=== PATIENT | male | born 2000 | race Caucasian/White ===

== ENCOUNTER 2019-04-05 11:19 | Emergency (ER) | payer OTHER, SELFPAY ==
[2019-04-05 11:30] VITALS: BP 143/97; PULSE 74; RESP 18; TEMP 37.1; O2SAT 98
[2019-04-05] MEDS: ACETAMINOPHEN 325 MG TABLET 975 MG PO (11:50)
[2019-04-05] MEDS: TET,DIPH,PERTUSS(ACELL),VAC/PF 0.5 ML SYRINGE IM (11:51)
[2019-04-05] MEDS: LIDOCAINE 1% W/EPI 1 ML SUBCUT (11:51)
[2019-04-05] MEDS: BACITRACIN OINT 0.9 GM PCKT 1 APPLIC TOP (11:53)
[2019-04-05 12:03] VITALS: BP 140/92; BP 143/97; PULSE 57; PULSE 74; RESP 18; RESP 20; TEMP 37.1; O2SAT 100; O2SAT 98
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
[2019-04-05 12:48] VITALS: BP 131/79; PULSE 112; RESP 17; O2SAT 100
[2019-04-05 13:30] VITALS: BP 143/75; PULSE 74; RESP 20; O2SAT 99
== END 2019-04-05 13:30 | disposition home or self-care (01) ==
PROVIDERS: Emergency Provider Nurse Practitioner Family; PCP General Practice
DX: S01.01XA Laceration without foreign body of scalp, initial encounter (principal); S09.90XA Unspecified injury of head, initial encounter; Z23 Encounter for immunization
CPT/HCPCS: 12001; 90471; 93041; 99283; 90715

== ENCOUNTER 2020-02-07 23:10 | Emergency (ER) | payer OTHER, SELFPAY ==
[2020-02-07 23:24] VITALS: BP 133/80; PULSE 83; RESP 26; O2SAT 99; BMI 18.4
[2020-02-07 23:28] VITALS: PULSE 67; O2SAT 100
[2020-02-07 23:30] VITALS: BP 129/81; PULSE 58; O2SAT 99
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
[2020-02-07] MEDS: DIPHTH,PERTUSS(ACELL),TET VAC 0.5 ML SYRINGE IM (23:47)
[2020-02-07] MEDS: BACITRACIN OINT 0.9 GM PCKT 1 APPLIC TOP (23:47)
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
[2020-02-07 23:58] VITALS: PULSE 80
[2020-02-08] VITALS: BP 143/74; PULSE 82; O2SAT 99
[2020-02-08 00:35] VITALS: PULSE 70; O2SAT 93
[2020-02-08 00:37] VITALS: BP 146/89; PULSE 62; O2SAT 99
[2020-02-08] MEDS: ONDANSETRON 4 MG ODT SL (00:53)
[2020-02-08] MEDS: HYDROCODONE/ACET 5/325 TABLET 1 TAB PO (00:53)
[2020-02-08 01:00] VITALS: PULSE 84; O2SAT 97
[2020-02-08 01:01] VITALS: BP 142/78; PULSE 66; O2SAT 98
== END 2020-02-08 01:47 | disposition home or self-care (01) ==
PROVIDERS: Emergency Provider Emergency Medicine; PCP General Practice
DX: S82.91XA Unspecified fracture of right lower leg, initial encounter for closed fracture (principal); S80.211A Abrasion, right knee, initial encounter; V49.9XXA Car occupant (driver) (passenger) injured in unspecified traffic accident, initial encounter
CPT/HCPCS: 71045; 73562; 73590; 90715; 99283

== ENCOUNTER 2020-10-23 09:56 | Emergency (ER) | payer SELFPAY ==
[2020-10-23 10:00] VITALS: BP 140/90; PULSE 76; RESP 16; TEMP 37.3; O2SAT 100; BMI 18.4
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
== END 2020-10-23 10:18 | disposition home or self-care (01) ==
PROVIDERS: Emergency Provider Emergency Medicine; PCP General Practice
DX: M65.4 Radial styloid tenosynovitis [de Quervain] (principal)
CPT/HCPCS: 99282

== ENCOUNTER 2020-11-15 21:09 | Emergency (ER) | payer SELFPAY ==
[2020-11-15 21:17] VITALS: BP 170/96; PULSE 95; RESP 17; TEMP 37.7; O2SAT 98; BMI 16.9
--- NOTE | 2020-11-15 22:18 | ED.NAVMDI ---
HPI - Nausea/Vomiting/Diarrhea General Chief complaint: Nausea/Vomiting/Diarrhea Stated complaint: NAUSEA UNABLE TO DO MUCH Time Seen by Provider: 11/15/20 22:18 Source: patient Mode of arrival: Ambulatory Limitations: no limitations History of Present Illness HPI Narrative: 20-year-old gentleman who presents with a headache that is been present now for 1-2 hours increasing in severity. He has been having headaches fairly frequently now for the last 3 months. The frequently start with a sensation that the headache is coming associated with nausea and then acute pain. He finds that he typically needs to go to bed and sleep for 8-10 hours for the headache to resolve. In asking him questions about patterns of the course of his lifetime he 1st began having headaches when he was 11 or 12 years old. He goes through waxing and waning. Similar to the current situation that he is in. He has never been formally diagnosed with migraine headache a but this certainly sounds suspiciously like migraine headache. He has no associated neurologic complaints. Related Data Previous Rx's Medication Instructions Recorded hydrocodone-acetaminophen [[place]] 1 tab PO Q4-6H PRN #14 tab 02/08/20 ondansetron 4 mg PO Q8H PRN #14 tab 02/08/20 sumatriptan succinate 50 mg PO Q2-4H PRN #9 tab 11/16/20 Allergies Allergy/AdvReac Type Severity Reaction Status Date / Time No Known Drug Allergies Allergy Verified 10/23/20 10:10 Review of Systems Review of Systems Narrative: Pertinent positive and negative findings as per HPI Remainder of review of systems is otherwise unremarkable for Constitutional: Fevers, chills, weakness ENT: No sore throat, neck pain, ear pain CV: Chest pain, palpitations, Respiratory: Cough, wheeze, dyspnea GI: Nausea, vomiting, diarrhea, : Dysuria, hematuria, Patient History Medical History Healthy adult Migraine headache Social History Smoking Status: Current every day smoker Smoking Status: Current every day smoker alcohol intake frequency: a few times a month Substance Use Type: does not use Exam Narrative Exam Narrative: General: Alert appropriate in no acute distress Respiratory: Able to speak in full sentences, no obvious respiratory distress Skin: No obvious rashes, warm and dry Neurologic: Grossly intact no obvious asymmetries or abnormalities, pupils are equal and reactive Psych: appropriate insight and affect, cooperative Initial Vital Signs Initial Vital Signs: Vital Signs Temperature 99.8 F H 11/15/20 21:17 Pulse Rate 95 H 11/15/20 21:17 Respiratory Rate 17 11/15/20 21:17 Blood Pressure 170/96 H 11/15/20 21:17 Pulse Oximetry 98 11/15/20 21:17 Course Orders Ordered: ED Orders 11/15/20 22:37 Complete Blood Count AUTO DIFF Stat Comprehensive Metabolic Panel Stat Discontinued Medications Sodium Chloride (Normal Saline 0.9%) 1,000 mls @ 1,000 mls/hr IV BOLUS ONE Stop: 11/15/20 23:18 Last Infusion: 11/16/20 00:10 Dose: 0 mls/hr Documented by: Admin: 11/15/20 22:38 Dose: 1,000 mls/hr Documented by: RICARDO Ketorolac Tromethamine (Ketorolac 60 Mg/2 Ml Vial) 15 mg IV NOW ONE Stop: 11/15/20 22:39 Last Admin: 11/15/20 22:40 Dose: 15 mg Documented by: RICARDO Ondansetron HCl (Ondansetron 4 Mg/2 Ml Inj) 4 mg IV NOW ONE Stop: 11/15/20 22:20 Last Admin: 11/15/20 22:38 Dose: 4 mg Documented by: RICARDO Vital Signs Vital signs: Vital Signs - 8 hr 11/15/20 21:17 11/16/20 00:09 11/16/20 01:06 Temperature 99.8 F H Pulse Rate 95 H 57 L 59 L Respiratory Rate 17 14 16 Blood Pressure 170/96 H 106/65 119/85 Pulse Oximetry 98 99 98 MDM - Nausea/Vomiting/Diarrhea Medical Records Attestation: I reviewed the patient's medical records. Lab Data Result diagrams: 11/15/20 22:37 11/15/20 22:37 Labs: Lab Results 11/15/20 11/15/20 Range/Units 22:37 22:37 WBC 6.3 (4.5-11.0) X10^3/uL RBC 5.02 (4.5-5.9) X10^6/uL Hgb 14.7 (13.5-17.5) g/dL Hct 43.1 (41-53) % MCV 85.7 (80-100) fL MCH 29.3 (26-34) PG MCHC 34.2 (30-36) % RDW 12.9 (11.6-14.8) % Plt Count 280 (150-400) X10^3/uL Neut % (Auto) 54.9 (50-75) % Lymph % (Auto) 32.4 (25-40) % Isabella % (Auto) 8.7 (3-14) % Eos % (Auto) 3.3 (2-4) % Baso % (Auto) 0.7 (0-2) % Neut # (Auto) 3400 (5705-4082) /uL Lymph # (Auto) 2000 (3460-1552) /uL Isabella # (Auto) 500 (0-900) /uL Eos # (Auto) 200 (0-450) /uL Baso # (Auto) 0 (0-100) /uL Sodium 142 (137-145) mmol/L Potassium 3.5 (3.4-5.1) mmol/L Chloride 105 (98-107) mmol/L Carbon Dioxide 27 (22-32) mmol/L BUN 15 (9-20) mg/dL Creatinine 0.84 (0.66-1.25) mg/dL Estimated GFR > 60.0 (>60) mL/min BUN/Creatinine Ratio 17.9 (6-22) Glucose 112 H (70-100) mg/dL Calcium 9.2 (8.4-10.2) mg/dL Total Bilirubin 1.4 H (0.2-1.3) mg/dL AST 22 (17-59) IU/L ALT 16 (<50) IU/L Alkaline Phosphatase 101 (38-126) U/L Total Protein 7.4 (6.3-8.2) g/dL Albumin 4.5 (3.5-5.0) g/dL Globulin 2.9 (1.7-4.1) g/dL Albumin/Globulin Ratio 1.6 (1.0-2.8) MDM Narrative Medical decision making narrative: 20-year-old gentleman with headache currently in frequent headache cycle. Over the course of his lifetime this cycles of waxed and wane. He does pay attention to sleep, caffeine foods and stress and recognizes that all of these can make his headaches worse. He has never tried migraine specific medications. He responded nicely to Zofran, Toradol and fluids in the emergency department with today's headache. Risks and benefits of using sumatriptan along with side effects reviewed with him. He is interested in a trial. Prescription for sumatriptan to use with his next migraine headache is given and encouraged him to follow-up with a primary care provider. He is safe for home discharge Discharge Plan Departure Patient Disposition: Home Clinical Impression: Migraine Qualifiers: Migraine type: unspecified Status migrainosus presence: without status migrainosus Intractability: not intractable Qualified Code(s): G43.909 - Migraine, unspecified, not intractable, without status migrainosus Instructions: DI for Migraine Activity Restrictions/Additional Instructions: Thank you for coming in I think that you are having fairly classic migraine headaches. You responded nicely to typical migraine treatment in the emergency room today. Your blood work was very reassuring I am going to suggest that you try Imitrex with your next headache. This is a migraine specific medication and that works it can be wonderful in per venting headaches getting to the level is severity you currently are experiencing. I would also encourage you to follow-up with a primary care physician to discuss your headaches. If the one you have seen before is not available, Dr. Eloise Mercado our primary care physician who is on-call this evening and you might consider scheduling appointment with her Prescriptions: New sumatriptan succinate 50 mg tablet 50 mg PO Q2-4H PRN (Reason: migraine headache) Qty: 9 RF: 0 No Action hydrocodone-acetaminophen [[place]] 5-325 mg tablet 1 tab PO Q4-6H PRN (Reason: pain) Qty: 14 RF: 0 ondansetron 4 mg tablet,disintegrating 4 mg PO Q8H PRN (Reason: nausea and vomiting) Qty: 14 RF: 0 Referrals: Ken Hutton MD [Primary Care Provider] - Callie Mercado MD [Physician] - Stand Alone Forms: Work Release Note
[2020-11-15] MEDS: ONDANSETRON 4 MG/2 ML INJ IV (22:38)
[2020-11-15] MEDS: SODIUM CHLORIDE 0.9% 1,000 ML 1000 ML IV (22:38)
[2020-11-15] MEDS: KETOROLAC 60 MG/2 ML VIAL 15 MG IV (22:40)
[2020-11-15 22:52] LABS: Add Manual Diff / Slide Review NO; Basophils Absolute Auto 0 /uL (0-100); Basophils Percent Auto 0.7 % (0-2); Eosinophils Absolute Auto 200 /uL (0-450); Eosinophils Percent Auto 3.3 % (2-4); Hematocrit 43.1 % (41-53); Hemoglobin 14.7 g/dL (13.5-17.5); Lymphocytes Absolute Auto 2000 /uL (1100-4500); Lymphocytes Percent Auto 32.4 % (25-40); Mean Corpuscular HGB Conc 34.2 % (30-36); Mean Corpuscular Hemoglobin 29.3 PG (26-34); Mean Corpuscular Volume 85.7 fL (80-100); Monocytes Absolute Auto 500 /uL (0-900); Monocytes Percent Auto 8.7 % (3-14); Neutrophils Absolute Auto 3400 /uL (1500-7000); Neutrophils Percent Auto 54.9 % (50-75); Platelet Count 280 X10^3/uL (150-400); Red Blood Cell Count 5.02 X10^6/uL (4.5-5.9); Red Cell Distribution Width 12.9 % (11.6-14.8); White Blood Cell Count 6.3 X10^3/uL (4.5-11.0)
[2020-11-15 22:55] LABS: Alanine Aminotransferase 16 IU/L (<50); Albumin 4.5 g/dL (3.5-5.0); Albumin Globulin Ratio 1.6 (1.0-2.8); Alkaline Phosphatase 101 U/L (38-126); Aspartate Aminotransferase 22 IU/L (17-59); BUN Creatinine Ratio 17.9 (6-22); Bilirubin Total 1.4 mg/dL (0.2-1.3); Blood Urea Nitrogen 15 mg/dL (9-20); Calcium 9.2 mg/dL (8.4-10.2); Carbon Dioxide 27 mmol/L (22-32); Chloride 105 mmol/L (98-107); Estimated Glomerular Filt Rate > 60.0 mL/min (>60); Globulin 2.9 g/dL (1.7-4.1); Glucose 112 mg/dL (70-100); HEMOLYSIS < 15 (0-50); Potassium 3.5 mmol/L (3.4-5.1); Sodium 142 mmol/L (137-145); Total Protein 7.4 g/dL (6.3-8.2)
[2020-11-16 00:09] VITALS: BP 106/65; PULSE 57; RESP 14; O2SAT 99
[2020-11-16 01:06] VITALS: BP 119/85; PULSE 59; RESP 16; O2SAT 98
== END 2020-11-16 01:07 | disposition home or self-care (01) ==
PROVIDERS: Emergency Provider Emergency Medicine; PCP General Practice
DX: G43.909 Migraine, unspecified, not intractable, without status migrainosus (principal)
CPT/HCPCS: 36415; 80053; 85025; 96361; 96374; 96375; 99284; J1885; J2405

== ENCOUNTER 2021-04-14 19:29 | Emergency (ER) | payer OTHER, SELFPAY ==
[2021-04-14 19:49] VITALS: BP 127/85; PULSE 60; RESP 14; TEMP 36.8; O2SAT 99; BMI 16.9
[2021-04-14 22:10] VITALS: BP 114/73; PULSE 52; O2SAT 100
--- NOTE | 2021-04-14 22:50 | PC.NURSE ---
Pt reports migraines, last one on 04/06/21, often has nausea with episodes. States he was taking a prescribed medication which prevented the migraines and nausea but is not currently on it. Denies any current symptoms.
--- NOTE | 2021-04-15 00:27 | ED.HA ---
HPI - Headache General Chief Complaint: Headache Stated Complaint: LT HAND PINKIE FINGER INJU STOMACH PAIN HEAD PAIN Time Seen by Provider: 04/15/21 00:27 Mode of arrival: Ambulatory Limitations: no limitations History of Present Illness HPI Narrative: 20-year-old gentleman who presents 7 days after injuring his left small finger while at work. It slid down the edge of bladder has a small laceration. He did not seek help immediately but has been using antibiotic ointment and Band-Aids appropriately. The wound does not appear to be infected. He also has complaints of chronic migraines. These have been worsening as he is now working full-time nights. He is having up to 3 headaches a week lasting anywhere from 2-9 hours. He is having significant nausea that is causing dramatic weight loss he has gone from 120 lb down to 110 lb. He is having to call out of work because of the headaches and would prefer to never have to leave work and to gain weight. He is wondering what options there might be. He has tried ibuprofen and Tylenol but the main issue is the weight loss because of the chronic nausea secondary to the headaches. Related Data Previous Rx's Medication Instructions Recorded hydrocodone 5 mg-acetaminophen 325 1 tab PO Q4-6H PRN #14 tab 02/08/20 mg tablet (Calcium) ondansetron 4 mg disintegrating 4 mg PO Q8H PRN #14 tab 02/08/20 tablet sumatriptan succinate 50 mg tablet 50 mg PO Q2-4H PRN #9 tab 11/16/20 ondansetron 4 mg disintegrating 4 mg PO Q8H PRN #20 tab 04/15/21 tablet sumatriptan succinate 50 mg tablet 50 mg PO Q2-4H PRN #9 tab 04/15/21 Allergies Allergy/AdvReac Type Severity Reaction Status Date / Time No Known Drug Allergies Allergy Verified 04/14/21 19:49 Review of Systems Review of Systems Narrative: Pertinent positive and negative findings as per HPI Remainder of review of systems is otherwise unremarkable for Constitutional: Fevers, chills, weakness ENT: No sore throat, neck pain, ear pain CV: Chest pain, palpitations, Respiratory: Cough, wheeze, dyspnea GI: Nausea, vomiting, diarrhea, : Dysuria, hematuria, Patient History Medical History Healthy adult Migraine headache Social History Smoking Status: Current every day smoker Smoking Status: Current every day smoker alcohol intake frequency: holidays/special occasions only Substance Use Type: does not use Exam Narrative Exam Narrative: General: Alert appropriate in no acute distress Respiratory: Able to speak in full sentences, no obvious respiratory distress Skin: No obvious rashes, warm and dry Neurologic: Grossly intact no obvious asymmetries or abnormalities Psych: appropriate insight and affect, cooperative Extremity: Left hand small finger 1 cm wound over the D IP crease. The wound appears to be healing nicely. Has some minor sensory loss just distal to that but the flexor tendon appears to be completely intact. Initial Vital Signs Initial Vital Signs: Vital Signs Temperature 98.3 F 04/14/21 19:49 Pulse Rate 60 04/14/21 19:49 Respiratory Rate 14 04/14/21 19:49 Blood Pressure 127/85 04/14/21 19:49 Pulse Oximetry 99 04/14/21 19:49 Course Vital Signs Vital signs: Vital Signs - 8 hr 04/14/21 19:49 04/14/21 22:10 Temperature 98.3 F Pulse Rate 60 52 L Respiratory Rate 14 Blood Pressure 127/85 114/73 Pulse Oximetry 99 100 MDM - Headache MDM Narrative Medical decision making narrative: Finger laceration is an L and I injury, L and I paperwork is filled out. It is healing well and at a week does not need any suturing. We did discuss the a sensory loss. It may be permanent but I suspect he will gain much of that sensation back. Long discussion regarding migraines, needs chronic headaches, overuse of [id number] medications(not a concern currently), use of tripped hands and use of nausea medications. See discharge instructions below. Strongly recommended that he talk to primary care physician I think he may benefit from daily prophylactic medication in addition to medications below. He is safe for home discharge Discharge Plan Departure Patient Disposition: Home Clinical Impression: Laceration Migraine headache with aura Qualifiers: Status migrainosus presence: without status migrainosus Intractability: not intractable Qualified Code(s): G43.109 - Migraine with aura, not intractable, without status migrainosus Instructions: DI for Migraine, DI for Minor Laceration Activity Restrictions/Additional Instructions: Thank you for coming in today For the laceration to your finger, continue to use antibiotic ointment and a Band-Aid until the wound heals. You did not injure the tendons but it does look like you may have injured the nerve. I suspect that over time you will have increased sensation over the tip of your finger. For your migraines: Please start keeping a migraine calendar to note how frequent they are, which shift you are working, what foods you are eating or any other triggers that might be making the migraines worse For mild migraines during your morning time, try to Excedrin and if your nauseated you can combine that with Zofran If it is evening time using 400 mg of ibuprofen (2 [id number] pills) and 1 Tylenol every 6 hours can be very helpful in controlling pain. You can also use Zofran with this For the more severe/debilitating migraines, try 50 mg of sumatriptan which is a migraine specific medication. This too can be combined with Zofran. With the frequency of headaches that your having, you may do better with a daily medicine to prevent migraines in the 1st place. Please schedule an appointment with your primary care physician to discuss your headaches. I wish you the best Prescriptions: New ondansetron 4 mg tablet,disintegrating 4 mg PO Q8H PRN (Reason: migraine headache) Qty: 20 RF: 1 sumatriptan succinate 50 mg tablet 50 mg PO Q2-4H PRN (Reason: migraine headache) Qty: 9 RF: 1 No Action hydrocodone-acetaminophen [[place]] 5-325 mg tablet 1 tab PO Q4-6H PRN (Reason: pain) Qty: 14 RF: 0 ondansetron 4 mg tablet,disintegrating 4 mg PO Q8H PRN (Reason: nausea and vomiting) Qty: 14 RF: 0 sumatriptan succinate 50 mg tablet 50 mg PO Q2-4H PRN (Reason: migraine headache) Qty: 9 RF: 0 Referrals: Ken Hutton MD [Primary Care Provider] -
[2021-04-15 00:59] VITALS: BP 116/68; PULSE 62; RESP 17; O2SAT 99
== END 2021-04-15 01:00 | disposition home or self-care (01) ==
PROVIDERS: Emergency Provider Emergency Medicine; PCP General Practice
DX: S61.217A Laceration without foreign body of left little finger without damage to nail, initial encounter (principal); G43.109 Migraine with aura, not intractable, without status migrainosus; W26.9XXA Contact with unspecified sharp object(s), initial encounter; Y99.0 Civilian activity done for income or pay
CPT/HCPCS: 99281

== ENCOUNTER 2021-10-13 12:57 | Emergency (ER) | payer SELFPAY ==
[2021-10-13 13:41] VITALS: BP 138/94; PULSE 58; RESP 16; TEMP 36.6; O2SAT 99; BMI 18.7
--- NOTE | 2021-10-13 15:40 | PC.NURSE ---
Pt states that his L upper wisdom tooth is growing in sideways and has become painful. Has recently set up insurance to see a dentist in the near future. No swelling noted to outside of mouth.
--- NOTE | 2021-10-13 15:48 | ED_ITS ---
HPI - Dental/Oral <SILVANO Boswell - Last Filed: 10/13/21 20:46> General Chief complaint: Dental/Oral Stated complaint: Thinks tooth is infected Time Seen by Provider: 10/13/21 15:39 Source: patient Mode of arrival: Ambulatory History of Present Illness HPI Narrative: 21-year-old male presents to the emergency department complaining of left upper wisdom tooth pain for the last 1-2 years. Patient has a history of ADHD, migraines, and chronic dental pain from this wisdom tooth that is growing in laterally on his upper left. Patient states that he grinds and clenches his teeth at night time, he wakes up with pain on this tooth in the mornings. He is concerned that it is infected because it hurts every day. He denies any fever, chewing pain, oral swelling, any enlarged lymph nodes, feeling unwell, or any other concerns right now. He states that he just got insurance, and will be getting a dentist soon. Related Data Previous Rx's Medication Instructions Recorded hydrocodone 5 mg-acetaminophen 325 1 tab PO Q4-6H PRN #14 tab 02/08/20 mg tablet ([place]) ondansetron 4 mg disintegrating 4 mg PO Q8H PRN #14 tab 02/08/20 tablet sumatriptan succinate 50 mg tablet 50 mg PO Q2-4H PRN #9 tab 11/16/20 ondansetron 4 mg disintegrating 4 mg PO Q8H PRN #20 tab 04/15/21 tablet sumatriptan succinate 50 mg tablet 50 mg PO Q2-4H PRN #9 tab 04/15/21 amoxicillin 875 mg-potassium 1 tab PO BID 5 Days #10 tab 10/13/21 clavulanate 125 mg tablet tramadol 50 mg tablet 50 mg PO BID PRN #10 tab 10/13/21 Allergies Allergy/AdvReac Type Severity Reaction Status Date / Time No Known Drug Allergies Allergy Verified 10/13/21 13:46 Review of Systems <SILVANO Boswell - Last Filed: 10/13/21 20:46> Review of Systems Narrative: General: denies fever, chills, malaise, sweats, fatigue Head/Neck: denies headache, neck pain, dizziness, endorses left upper dental pain on his wisdom tooth Eyes: denies visual changes, eye pain Cardio: denies chest pain Respiratory: denies dyspnea, cough MSK: denies joint pain, muscle weakness Skin: denies rash, itching, skin lesions or other Neuro: denies numbness, tingling Patient History <SILVANO Boswell - Last Filed: 10/13/21 20:46> Medical History Healthy adult Migraine headache Social History Smoking Status: Former smoker Smoking Status: Former smoker alcohol intake frequency: holidays/special occasions only Substance Use Type: does not use Exam <SILVANO Boswell - Last Filed: 10/13/21 20:46> Narrative Exam Narrative: Independently reviewed vitals signs and nursing notes. General: cooperative, comfortable, in no acute distress, well developed and well groomed Head: atraumatic, symmetrical facial expressions Neck: supple, atraumatic, without lymphadenopathy. Eyes: pupils equal round and reactive, EOMI Nose: nares patent, no rhinorrhea Mouth/Throat: uvula midline, moist mucus membranes, left upper wisdom tooth is growing in laterally, no surrounding erythema, fluctuance, visible abscess, or dental fracture Cardiovascular: regular rate and rhythm, no peripheral edema, warm extremities Respiratory: normal effort, able to speak in complete sentences, no audible wheezing, stridor, or rales. No retractions or tachypnea. Skin: brisk capillary refill, no rash, no erythema Neuro: normal speech and cognition, A&O x3, normal tone Psych: mental status is grossly normal, congruent mood, normal affect, pleasant and cooperative Initial Vital Signs Initial Vital Signs: Vital Signs Temperature 97.9 F 10/13/21 13:41 Pulse Rate 58 L 10/13/21 13:41 Respiratory Rate 16 10/13/21 13:41 Blood Pressure 138/94 H 10/13/21 13:41 Pulse Oximetry 99 10/13/21 13:41 <Griselda Owens DO - Last Filed: 10/14/21 07:54> Initial Vital Signs Initial Vital Signs: Vital Signs Temperature 97.9 F 10/13/21 13:41 Pulse Rate 58 L 10/13/21 13:41 Respiratory Rate 16 10/13/21 13:41 Blood Pressure 138/94 H 10/13/21 13:41 Pulse Oximetry 99 10/13/21 13:41 Course <SILVANO Boswell - Last Filed: 10/13/21 20:46> Vital Signs Vital signs: Vital Signs - 8 hr 10/13/21 13:41 Temperature 97.9 F Pulse Rate 58 L Respiratory Rate 16 Blood Pressure 138/94 H Pulse Oximetry 99 <Griselda Owens DO - Last Filed: 10/14/21 07:54> Vital Signs Vital signs: Vital Signs - 8 hr 10/13/21 13:41 Temperature 97.9 F Pulse Rate 58 L Respiratory Rate 16 Blood Pressure 138/94 H Pulse Oximetry 99 MDM - Dental/Oral <SILVANO Boswell - Last Filed: 10/13/21 20:46> MDM Narrative Medical decision making narrative: This is a pleasant 21-year-old male who presents to the emergency department for left upper wisdom tooth pain for the last 1-2 years and teeth grinding/clenching history. He was concerned about infection due to the pain that occurs every day in the morning. Discussed teeth clenching and grinding and after talking about his history, patient thought this is more likely to be pain from clenching and grinding. On exam, there is no localized erythema, fluctuance, or visible abscess, patient does not have any wound or drainage coming out of his mouth. He has been afebrile, without any cervical adenopathy. Patient was referred to [facility], he recently obtained insurance and is planning on calling to make an appointment after his emergency department visit. Encouraged him to have a dental extraction of this tooth, and to obtain a night baker for teeth clenching to help with his pain. Was given a prescription of Augmentin for prophylaxis or if this becomes infected, we discussed signs and symptoms of a dental abscess or infection, and he understands the differences between dental pain and dental infection now. Patient was given a prescription for tramadol for his pain has needed. Patient is appropriate and amenable to discharge home. Vital signs are stable on repeat examination is unremarkable. Patient has been informed of results. Patient has been given strict return to ER precautions for any new or worsening symptoms. Patient understands to follow up closely with outpatient providers as instructed. Patient understands plan and agrees to discharge home. All questions and concerns answered at this time. Discharge Plan Departure Patient Disposition: Home Clinical Impression: Chronic dental pain Instructions: DI for Dental Pain Activity Restrictions/Additional Instructions: *You have been diagnosed with dental pain most likely related to grinding your teeth and clenching at nighttime. Please call the [facility] and get herself an appointment for evaluation to have your teeth pulled. There does not appear to be an infection currently. If your pain worsens surrounding this area, or if you develop fever, started feeling poorly, or the dental office requests that you take antibiotics prior to going, I have called in a [facility] ription for you. Please follow-up at the [facility], I have attached the phone numbers for the [facility] as well as the [facility]. Thank you for trusting us with your care, I hope you feel better soon. There is pain medication as well as an antibiotic at the pharmacy in [facility]. *What to do: *Please continue to take your regular medications as directed. [ x] New medication prescriptions sent to your pharmacy: [ ] [ ] New medication written as a paper prescription [ ] No new medications given *Please follow up with your primary care provider in 2-3 days, call for an appointment. Let them know you were seen in the Emergency Department and that we asked that you be seen for follow-up. We will electronically transmit a record of today's note if your PCP is in our system *If you do not have a primary care provider please contact [phone] to establish care with one of the [facility] primary care providers. *Return to Emergency Department if you should have any new, worsening or concerning symptoms, such as [fever greater than 101F, chills, worsening pain, persistent vomiting or other bothersome symptoms] Prescriptions: New amoxicillin-pot clavulanate 875-125 mg tablet 1 tab PO BID 5 Days Qty: 10 0RF tramadol 50 mg tablet 50 mg PO BID PRN (Reason: pain) Qty: 10 0RF No Action hydrocodone-acetaminophen [[place]] 5-325 mg tablet 1 tab PO Q4-6H PRN (Reason: pain) Qty: 14 0RF ondansetron 4 mg tablet,disintegrating 4 mg PO Q8H PRN (Reason: nausea and vomiting) Qty: 14 0RF sumatriptan succinate 50 mg tablet 50 mg PO Q2-4H PRN (Reason: migraine headache) Qty: 9 0RF Rx Instructions: do not exceed 4 doses per 24 hrs ondansetron 4 mg tablet,disintegrating 4 mg PO Q8H PRN (Reason: migraine headache) Qty: 20 1RF sumatriptan succinate 50 mg tablet 50 mg PO Q2-4H PRN (Reason: migraine headache) Qty: 9 1RF Rx Instructions: do not exceed 4 doses per 24 hrs Referrals: González, Alicia [Other] Ken Hutton MD [Primary Care Provider] - Stand Alone Forms: Work Release Note <Griselda Owens DO - Last Filed: 10/14/21 07:54> Cosign ED Attending Jazature Attestation: I was immediately available in the department for consultation. Documentation has been reviewed. I agree with assessment and plan.
== END 2021-10-13 16:14 | disposition home or self-care (01) ==
PROVIDERS: Emergency Provider Nurse Practitioner Critical Care Medicine; PCP General Practice
DX: K08.89 Other specified disorders of teeth and supporting structures (principal); G89.29 Other chronic pain
CPT/HCPCS: 99281

== ENCOUNTER 2022-06-28 11:43 | Emergency (ER) | payer SELFPAY ==
[2022-06-28 12:02] VITALS: BP 139/77; PULSE 94; RESP 16; TEMP 37.1; O2SAT 96; BMI 19.2
[2022-06-28 12:48] LABS: Influenza A - CEPHEID Flu A POSITIVE (NEGATIVE); Influenza B - CEPHEID Flu B NEGATIVE (NEGATIVE); Respiratory Syncytial Virus Negative (Negative)
[2022-06-28 12:57] LABS: COVID-19 CEPHEID 4-PLEX PCR Negative (Negative)
--- NOTE | 2022-06-28 14:37 | ED_ITS ---
HPI - URI/Sore Throat <SILVANO Boswell - Last Filed: 06/28/22 14:39> General Chief Complaint: Upper Respiratory Symptoms Stated Complaint: Fever/Body Aches Time Seen by Provider: 06/28/22 14:10 Source: patient Mode of arrival: Ambulatory History of Present Illness HPI Narrative: This is a 22-year-old patient who presents to the emergency department complaining of muscle aches that started yesterday, congestion and a sore throat with a cough that started this morning. He was exposed to influenza a, endorses diarrhea without vomiting. States that he has been hot and cold with mild fever. Has not taken any medication for this. Denies any shortness of breath, chest pain, difficulty breathing. Related Data Previous Rx's Medication Instructions Recorded hydrocodone 5 mg-acetaminophen 325 1 tab PO Q4-6H PRN pain #14 tabs 02/08/20 mg tablet (Ulen) ondansetron 4 mg disintegrating 4 mg PO Q8H PRN nausea and 02/08/20 tablet vomiting #14 tabs sumatriptan succinate 50 mg tablet 50 mg PO Q2-4H PRN migraine 11/16/20 headache #9 tabs ondansetron 4 mg disintegrating 4 mg PO Q8H PRN migraine headache 04/15/21 tablet #20 tabs sumatriptan succinate 50 mg tablet 50 mg PO Q2-4H PRN migraine 04/15/21 headache #9 tabs tramadol 50 mg tablet 50 mg PO BID PRN pain #10 tabs 10/13/21 Allergies Allergy/AdvReac Type Severity Reaction Status Date / Time No Known Drug Allergies Allergy Verified 10/13/21 13:46 Review of Systems <SILVANO Boswell - Last Filed: 06/28/22 14:39> Review of Systems Narrative: Review of systems is negative for acute abnormalities unless otherwise noted in HPI Patient History <SILVANO Boswell - Last Filed: 06/28/22 14:39> Medical History Healthy adult Migraine headache Social History Smoking Status: Former smoker Smoking Status: Former smoker alcohol intake frequency: holidays/special occasions only Substance Use Type: does not use Exam <SILVANO Boswell - Last Filed: 06/28/22 14:39> Narrative Exam Narrative: Reviewed vitals signs and nursing notes. General: cooperative, comfortable, in no acute distress, well groomed HEENT: symmetrical facial expressions, moist mucous membranes, Respirations: without increased work of breathing, tachypnea, hypoxia, wheezing, or abnormal breath sounds. Cardiac, heart rate regular without tachycardia, afebrile Skin: brisk capillary refill, without pallor or erythema Neuro: normal speech and cognition, A&O x3, ambulatory, clear speech Psych: mental status is grossly normal, congruent mood, normal affect, pleasant and cooperative Initial Vital Signs Initial Vital Signs: Vital Signs Temperature 98.7 F 06/28/22 12:02 Pulse Rate 94 H 06/28/22 12:02 Respiratory Rate 16 06/28/22 12:02 Blood Pressure 139/77 06/28/22 12:02 Pulse Oximetry 96 06/28/22 12:02 Oxygen Delivery Method 06/28/22 12:02 <Raimundo Deras MD - Last Filed: 06/28/22 16:37> Initial Vital Signs Initial Vital Signs: Vital Signs Temperature 98.7 F 06/28/22 12:02 Pulse Rate 94 H 06/28/22 12:02 Respiratory Rate 16 06/28/22 12:02 Blood Pressure 139/77 06/28/22 12:02 Pulse Oximetry 96 06/28/22 12:02 Oxygen Delivery Method 06/28/22 12:02 Course <SILVANO Boswell - Last Filed: 06/28/22 14:39> Orders Ordered: ED Orders 06/28/22 12:04 Covid-19 + FLU A/B + RSV - PCR Stat Vital Signs Vital signs: Vital Signs - 8 hr 06/28/22 12:02 Temperature 98.7 F Pulse Rate 94 H Respiratory Rate 16 Blood Pressure 139/77 Pulse Oximetry 96 Oxygen Delivery Method Room Air <Raimundo Deras MD - Last Filed: 06/28/22 16:37> Orders Ordered: ED Orders 06/28/22 12:04 Covid-19 + FLU A/B + RSV - PCR Stat Vital Signs Vital signs: Vital Signs - 8 hr 06/28/22 12:02 Temperature 98.7 F Pulse Rate 94 H Respiratory Rate 16 Blood Pressure 139/77 Pulse Oximetry 96 Oxygen Delivery Method Room Air MDM - URI/Sore Throat <SILVANO Boswell - Last Filed: 06/28/22 14:39> Lab Data Labs: Lab Results 06/28/22 Range/Units 12:04 SARS-CoV-2 (PCR) Negative (Negative) Influenza A (RT-PCR) Flu a positive H (NEGATIVE) Influenza B (RT-PCR) Flu b negative (NEGATIVE) RSV (PCR) Negative (Negative) MDM Narrative Medical decision making narrative: This is a 22-year-old patient who presents to the emergency department with 1 day of upper respiratory symptoms and muscle aches who tested positive for influenza A without hypoxia, respiratory distress, dehydration, or focal exam to suggest secondary bacterial infection. Discussed CDC guidelines for quarantine, mask wearing, physical distancing, and infection prevention measures such as frequent handwashing. Discussed supportive treatments: Tylenol/Motrin as needed for pain/fever. OTC decongestant medications and/or antihistamines for symptomatic relief. Maintain adequate fluid intake. Follow-up with PCP as directed. Return to clinic/ER instructions discussed for new, not improving, or worsening symptoms. All questions answered. <Raimundo Deras MD - Last Filed: 06/28/22 16:37> Lab Data Labs: Lab Results 06/28/22 Range/Units 12:04 SARS-CoV-2 (PCR) Negative (Negative) Influenza A (RT-PCR) Flu a positive H (NEGATIVE) Influenza B (RT-PCR) Flu b negative (NEGATIVE) RSV (PCR) Negative (Negative) Discharge Plan Departure Patient Disposition: Home Clinical Impression: Influenza A Instructions: Influenza Activity Restrictions/Additional Instructions: *You have been diagnosed with [influenza A. Please stay home from work until you no longer have a fever, the flu typically last 4-6 days of yucky symptoms. Please use loperamide as needed for your diarrhea. I hope that you can stay hydrated, take ibuprofen and Tylenol as needed for aches and pains and this will help prevent further dehydration due to fever. I hope you feel better soon *What to do: *Please continue to take your regular medications as directed. [ ] New medication prescriptions sent to your pharmacy: [ ] [ ] New medication written as a paper prescription [ x] No new medications given *Please follow up with your primary care provider in 2-3 days, call for an appointment. Let them know you were seen in the Emergency Department and that we asked that you be seen for follow-up. We will electronically transmit a record of today's note if your PCP is in our system *If you do not have a primary care provider please contact [phone] to [facility] with one of the [facility] primary care providers. *Return to Emergency Department if you should have any new, worsening, or concerning symptoms, such as [fever greater than 101F, chills, worsening pain, persistent vomiting or other bothersome symptoms]. Prescriptions: No Action hydrocodone-acetaminophen [Ulen] 5-325 mg tablet 1 tab PO Q4-6H PRN (Reason: pain) Qty: 14 0RF ondansetron 4 mg tablet,disintegrating 4 mg PO Q8H PRN (Reason: nausea and vomiting) Qty: 14 0RF sumatriptan succinate 50 mg tablet 50 mg PO Q2-4H PRN (Reason: migraine headache) Qty: 9 0RF Rx Instructions: do not exceed 4 doses per 24 hrs ondansetron 4 mg tablet,disintegrating 4 mg PO Q8H PRN (Reason: migraine headache) Qty: 20 1RF sumatriptan succinate 50 mg tablet 50 mg PO Q2-4H PRN (Reason: migraine headache) Qty: 9 1RF Rx Instructions: do not exceed 4 doses per 24 hrs tramadol 50 mg tablet 50 mg PO BID PRN (Reason: pain) Qty: 10 0RF Referrals: Ken Hutton MD [Primary Care Provider] - Stand Alone Forms: Work Release Note Visit Report Forms: Patient Portal/API <Raimundo Deras MD - Last Filed: 06/28/22 16:37> Cosign ED Attending Jazature Attestation: I was immediately available in the department for consultation. ?This documentation has been reviewed and I agree with assessment and plan. Supervised by Raimundo Deras MD
== END 2022-06-28 14:48 | disposition home or self-care (01) ==
PROVIDERS: Emergency Medicine; Emergency Provider Nurse Practitioner Critical Care Medicine; PCP General Practice
DX: J10.1 Influenza due to other identified influenza virus with other respiratory manifestations (principal); Z20.822 Contact with and (suspected) exposure to COVID-19
CPT/HCPCS: 0241U; 99281; 99282

== ENCOUNTER → 2022-11-20 16:59 | Outpatient (CLI) | payer OTHER, SELFPAY | PROVIDERS: PCP General Practice; Visit Provider Nurse Practitioner Family | DX: J02.9 Acute pharyngitis, unspecified (principal) | CPT/HCPCS: 87070 ==

== ENCOUNTER 2024-02-08 12:25 | Emergency (ER) | payer OTHER, SELFPAY ==
[2024-02-08 12:30] VITALS: BP 123/69; PULSE 59; RESP 15; TEMP 36.5; O2SAT 97; BMI 19.9
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
[2024-02-08 14:47] VITALS: BP 130/75; PULSE 46; RESP 20; TEMP 36.6; O2SAT 98
== END 2024-02-08 14:49 | disposition home or self-care (01) ==
PROVIDERS: Emergency Provider Emergency Medicine; PCP General Practice
DX: F07.81 Postconcussional syndrome (principal); M62.838 Other muscle spasm; V89.2XXA Person injured in unspecified motor-vehicle accident, traffic, initial encounter
CPT/HCPCS: 99281; 99283

== ENCOUNTER → 2024-03-23 08:40 | Outpatient (CLI) | payer OTHER, MEDICAID, SELFPAY ==
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
== END ==
LOC: MRI 08:41
PROVIDERS: PCP Family Medicine; Referring Provider Family Medicine; Visit Provider Family Medicine
DX: F07.81 Postconcussional syndrome (principal)
CPT/HCPCS: 70551